=== PATIENT | male | born 1980 | race Two or more races ===

== ENCOUNTER 2025-01-20 18:36 | Emergency (ER) | payer SELFPAY ==
[~2025-01-20] VITALS: Ht 182.9 cm; Wt 85.0 kg
[2025-01-20 18:38] VITALS: BP 150/82; PULSE 80; RESP 18; TEMP 98.7; O2SAT 100
== END 2025-01-21 00:12 | disposition left against medical advice (07) ==
LOC: ER 18:36
DX: R56.9 Unspecified convulsions (principal); Z76.0 Encounter for issue of repeat prescription
CPT/HCPCS: 99281; 99283